=== PATIENT | female | born 1970 | race Caucasian/White ===

== ENCOUNTER 2017-03-12 05:54 | Emergency (ER) | payer BC ==
[~2017-03-12] VITALS: Ht 170.2 cm; Wt 100.0 kg
[2017-03-12 05:59] VITALS: BP 184/83; PULSE 69; TEMP 97.3
[2017-03-12 06:28] LABS: BASO # 0.1 (0.0-0.2); BASO % 0.7 % (0.0-2.0); EOS # 0.3 (0.0-0.7); EOS % 3.5 % (0-4.0); GRAN # 3.4 (1.4-6.5); GRAN % 44.8 % (42.2-75.2); HEMATOCRIT 39.6 % (37.0-47.0); HEMOGLOBIN 13.6 g/dl (12.5-16.0); LYMPH # 3.2 (1.2-3.4); LYMPH % 42.3 % (20.0-51.0); MEAN CELL VOLUME 84 fl (80.0-100.0); MEAN CORPUSCULAR HEMOGLOBIN 29 pg (27.0-31.0); MEAN CORPUSCULAR HGB CONC 34 g/dl (33.0-37.0); MEAN PLATELET VOLUME 11.5 fl (7.4-10.4); MONO # 0.6 (0.1-0.6); MONO % 8.4 % (1.7-9.3); PLATELET COUNT 234 K/mm3 (130-400); RED BLOOD COUNT 4.74 M/mm3 (4.10-5.30); REDCELL DISTRIBUTION WIDTH-CV 12.9 % (11.5-14.5); WHITE BLOOD COUNT 7.6 K/mm3 (4.8-10.8)
[2017-03-12 06:35] LABS: PH 6 (5-8); URINE APPEARANCE Cloudy; URINE BACTERIA None Seen /hpf; URINE BILIRUBIN Negative (NEGATIVE); URINE BLOOD 3+ (NEGATIVE); URINE COLOR Red; URINE GLUCOSE Negative (NEGATIVE); URINE KETONE Negative (NEGATIVE); URINE RBC >50 /hpf; URINE UROBILINOGEN Negative (NEGATIVE); URINE WBC None Seen /hpf
[2017-03-12 06:38] LABS: ADJUSTED CALCIUM 8.8 mg/dL (8.4-10.2); ALBUMIN 4.5 gm/dL (3.5-5.0); BILIRUBIN,TOTAL 0.7 mg/dL (0.0-1.0); CALCIUM 9.2 mg/dL (8.4-10.2); CREATININE, serum 0.82 mg/dL (0.52-1.25); POTASSIUM 3.7 mmol/L (3.4-5.0); TOTAL PROTEIN 7.7 gm/dL (6.4-8.2)
[2017-03-12] MEDS ORDERED: FLOMAX 0.40.4 MG/CAP PO (08:41)
[2017-03-12] MEDS ORDERED: PERCOCET 325 MG1 TA2 PO (08:41)
[2017-03-12] MEDS ORDERED: ZOFRAN ODT4 MG PO (08:41)
== END 2017-03-12 10:02 | disposition home or self-care (01) ==
LOC: COL.ER 05:54
PROVIDERS: Emergency Medicine
DX: N20.2 Calculus of kidney with calculus of ureter (principal)
CPT/HCPCS: J1170; J1885; J2405; J7030; Q9967

== ENCOUNTER 2019-05-29 21:17 | Emergency (ER) | payer BC ==
[~2019-05-29] VITALS: Ht 167.6 cm; Wt 95.5 kg
[~2019-05-29 21:17] MED LIST: FLOMAX 0.40.4 MG/CAP PO; PERCOCET 325 MG1 TA2 PO; ZOFRAN ODT4 MG PO
[2019-05-29 21:25] VITALS: BP 201/89; PULSE 88; TEMP 98.6
== END 2019-05-29 22:13 | disposition left against medical advice (07) ==
LOC: COL.ER 21:17
DX: T17.298A Other foreign object in pharynx causing other injury, initial encounter (principal)